=== PATIENT | female | born 2000 | race Caucasian/White ===

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

== ENCOUNTER 2019-02-07 03:14 | Emergency (ER) | payer OTHER ==
[~2019-02-07] VITALS: Ht 157.5 cm; Wt 41.7 kg
[~2019-02-07 03:14] MED LIST changes: +FLUOXETINE HCL20 M1 PO
[2019-02-07] MEDS ORDERED: AUGMENTIN 875-1 EACH PO (03:58)
== END 2019-02-07 04:17 | disposition home or self-care (01) ==
LOC: ED 03:14
DX: K01.1 Impacted teeth (principal); G43.909 Migraine, unspecified, not intractable, without status migrainosus; K21.9 Gastro-esophageal reflux disease without esophagitis; Z91.018 Allergy to other foods; Z91.048 Other nonmedicinal substance allergy status; Z79.899 Other long term (current) drug therapy
CPT/HCPCS: 99283

== ENCOUNTER 2019-04-03 09:03 | Emergency (ER) | payer OTHER ==
[~2019-04-03] VITALS: Ht 157.5 cm; Wt 41.7 kg
[~2019-04-03 09:03] MED LIST changes: +AUGMENTIN 875-1 EACH PO
== END 2019-04-03 10:49 | disposition home or self-care (01) ==
LOC: ED 09:03
DX: G43.909 Migraine, unspecified, not intractable, without status migrainosus (principal); Z88.8 Allergy status to other drugs, medicaments and biological substances; Z91.018 Allergy to other foods; Z79.899 Other long term (current) drug therapy
CPT/HCPCS: 96374; 96375; 99283-25; J0780; J1100; J1200; J1885; J7030

== ENCOUNTER 2019-04-05 00:48 | Emergency (ER) | payer OTHER ==
[~2019-04-05] VITALS: Ht 157.5 cm; Wt 41.7 kg
--- OUTSIDE RECORDS SUMMARY | 2019-04-05 00:50 | XMS ---
PreManage Notification: JULIO CRAIG Security [employer] Specialist Events No recent Security Events currently on file CRITERIA MET - [facility] [place] - 2 Visits in 30 Days CARE PROVIDERS There are no care providers on record at this time. [place] has no Care Guidelines for this patient. Martha VISIT COUNT (12 MO.) 3 [facility] [place]. TOTAL 3 NOTE: Visits indicate total known visits. ED/C VISIT TRACKING (12 MO.) 04/05/2019 00:48 [facility] [place] TYPE: Emergency COMPLAINT: - SOB 04/03/2019 09:04 [facility] [place] TYPE: Emergency COMPLAINT: - VOMITING, HEAD PAIN 02/07/2019 03:14 [facility] [place] TYPE: Emergency COMPLAINT: - MOUTH PAIN DIAGNOSES: - Other adjunct faculty for medical terminology (current) drug therapy - Allergy to other foods - Impacted teeth - Other nonmedicinal substance allergy status - Gastro-esophageal reflux disease without esophagitis - Migraine, unsp, not intractable, without status migrainosus INPATIENT VISIT TRACKING (12 MO.) No inpatient visits to display in this time frame [id number]
== END 2019-04-05 01:59 | disposition home or self-care (01) ==
LOC: ED 00:48
DX: J20.9 Acute bronchitis, unspecified (principal); Z91.018 Allergy to other foods; Z91.048 Other nonmedicinal substance allergy status
CPT/HCPCS: 71046; 80053; 84703; 85025; 99283-25

== ENCOUNTER 2020-07-22 07:00 | Day surgery (SDC) | payer OTHER, BC ==
[~2020-07-22] VITALS: Ht 157.5 cm; Wt 53.0 kg
[~2020-07-22 07:00] MED LIST changes: +HYDROXYZINE HCL25 MG PO; +NAPROSYN500 MG PO; +PROTONIX20 MG PO
--- NOTE | 2020-07-22 10:19 | NUR ---
PT ALERT, ORIENTED AND SOMEWHAT ANXIOUS. HAD GOOD VISIT WITH PT, WAS ABLE TO INFORM AND ENCOURAGE. ALL QUESTIONS ASKED ANSWERED.PT DID REQUEST PRAYER AND ASSISTANCE WITH AN ADMITTING ISSUE. CONNECTED WITH S. REWORK OPERATOR CARLOS AND ADMITTING CARLOS AND THEY BOTH GAVE ASSISTANCE. PT ALSO COMMENTED THAT DR HAYNES WAS THE FIRST DR THAT REALLY LISTENED TO HER, AND ACTED IMMEDIATELY TO HELP HER WITH WHAT HAS BEEN AN ISSUE FOR 8 YRS. WILL FOLLOW NEEEDED
--- NOTE | 2020-07-22 10:28 | NUR ---
07/22/20 1028 Sheila Valle 1021: PT ARRIVES TO PACU VIA STRETCHER FOR RECOVERY. UNABLE TO AROUSE WITH VERBAL OR PAINFUL STIMULI. VSS, RESP EVEN AND UNLABORED. JAW THRUST PERFORMED TO OPEN AIRWAY. OPA IN PLACE. PT ON 12L VIA FACEMASK ON ARRIVAL 123: OXYGEN DECREASED TO 6L VIA FACEMASK. O2 SATS REMAINS >98% JAW THRUST CONTD. REMAINS NONAROUSED WITH VERBAL OR PAINFUL STIMULI. OPA REMAINS IN PLACE
--- NOTE | 2020-07-22 12:50 | NUR ---
1220 AMB TO [facility] SECOND TIME. DOES WELL. WANTS TO GO HOME. HAS CALLED MOM FOR RIDE.
--- NOTE | 2020-07-23 12:07 | OR ---
[facility] [address] [place], [place] [address] Signed DATE OF OPERATION: 07/22/2020 SURGEON: Darion Ruth MD PREOPERATIVE DIAGNOSIS: Pelvic pain. POSTOPERATIVE DIAGNOSES: Pelvic pain and extensive endometriosis of the pelvic peritoneum. Urinary Tract Infection. PROCEDURE: Diagnostic laparoscopy. RN MANAGED CARE: Dr. Guerrero. ANESTHESIA: General. ESTIMATED BLOOD LOSS: 5 mL. SPECIMEN: Urine for urinalysis, possible culture and sensitivity. DRAINS: None. PACKING: None. FINDINGS: Urine was cloudy and some particulate matter present. Cervix was small, slightly friable. Normal-sized uterus. The anterior cul-de-sac was slightly hyperemic but no adhesions. No endometriosis. The posterior cul-de-sac had no adhesions, but there were two larger brownish implants of endometriosis, one in the midline and one on the upper left uterosacral ligament. The rest of the cul-de-sac had multiple white and clear implants of endometriosis extending along both uterosacral ligaments down into the posterior cul-de-sac and up on the lower pelvic sidewall over the ureter. Both Electronically Signed By: DARION RUTH MD 07/23/20 1207 PATIENT NAME: JULIO CRAIG OPERATIVE REPORT DATE OF : [birth year] REPORT #: [id number] PHYSICIAN: DARION RUTH MD PCP: ADDLEMAN,LINDSAY K PAC REPORT IS CONFIDENTIAL AND NOT TO BE RELEASED WITHOUT AUTHORIZATION [facility] [address] [place], [place] [address] Signed posterior aspects of the broad ligament have multiple clear and white endometrial implants present. These extended down to the sigmoid colon, but none was observed on any of the bowel. The left tube was normal in length and normal-appearing fimbriated end. No adhesions. The left ovary is normal in size and shape without any evidence of endometriosis or adhesions. The right tube was normal in length with normal pink fimbriated end, possible clear endometrial implants on the right tube and right infundibulopelvic ligament. The right ovary is normal in size and shape without any evidence of endometriosis or adhesions. No endometriosis was seen in either ovarian fossa. The appendix appeared normal. The liver also appeared normal. The rest of the bowel appeared normal. DESCRIPTION OF PROCEDURE: The patient was brought to the operating room, placed in the supine position. After adequate general anesthesia was obtained, was prepped and draped in usual sterile fashion. Wilburn catheter was placed in the bladder. Urine was noted to be very cloudy and particulate, so specimen was collected for urinalysis with possible culture and sensitivity. A weighted speculum was placed in the vagina and the anterior lip of the cervix was grasped with an Allis clamp. Cervix was serially dilated and a Hulka clamp carefully introduced into the uterine cavity and attached to the anterior lip of the cervix. Allis clamp and weighted speculum were removed. Attention was then drawn to the abdomen. A small infraumbilical skin incision was made with a scalpel after injecting the area with 0.25% Marcaine with epinephrine. The direct entry 5 mm trocar and sleeve with laparoscope inserted was then used in the direct entry procedure. The abdomen was grasped on either side of the incision and elevated and the gas attached to the sleeve and the trocar and sleeve bluntly entered the abdomen under direct visualization. After the sleeve was in the abdomen, the trocar was removed and the 5 mm laparoscope placed through the sleeve. The above findings were noted. The pelvis was carefully inspected. Because of the quite extensive nature of the endometriosis considering the treatment of excision that cause increased risk of adhesions in the cul-de-sac and the increased risk of injury to bowel and ureters, it was decided to discuss other options including medical and robotic surgery with the patient prior to treatment. At this point, the gas was allowed to escape. The trocar removed and the incision closed using a subcuticular stitch of 4-0 Vicryl. The Wilburn catheter was removed. The Hulka clamp removed. The cervix observed and noted to be slightly excoriated from the Hulka clamp and so Bovie was used to carefully cauterize the two raw spots on the cervix. Good hemostasis was then noted. All instruments were removed from the vagina. The patient tolerated the procedure well, went to recovery room in good condition. The sponge, needle, and instrument counts were correct at the end of the procedure. Electronically Signed By: DARION RUTH MD 07/23/20 1207 PATIENT NAME: JULIO CRAIG OPERATIVE REPORT DATE OF : [birth year] REPORT #: [id number] PHYSICIAN: DARION RUTH MD PCP: LINDSAY OTERO PAC REPORT IS CONFIDENTIAL AND NOT TO BE RELEASED WITHOUT AUTHORIZATION [facility] [address] [place] [id number] Signed Darion Ruth MD MJB/MODL /[id number] cc: Dr. Lindsay Otero Copies: ~ Electronically Signed By: DRAION RUTH MD 07/23/20 1207 PATIENT NAME: JULIO CRAIG OPERATIVE REPORT DATE OF : [birth year] REPORT #: [id number] PHYSICIAN: DARION RUTH MD PCP: LINDSAY OTERO PAC REPORT IS CONFIDENTIAL AND NOT TO BE RELEASED WITHOUT AUTHORIZATION
== END 2020-07-22 12:48 | disposition home or self-care (01) ==
LOC: OPS 07:00 → DS 07:00 → OPS 08:45 → DS 11:45 → OPS 12:48
PROVIDERS: ATTEND General Practice
PROC: 0WJJ4ZZ Inspection of Pelvic Cavity, Percutaneous Endoscopic Approach (ICD-10-PCS; principal; 2020-07-22 08:45)
DX: N80.3 Endometriosis of pelvic peritoneum (principal); R10.2 Pelvic and perineal pain; G89.29 Other chronic pain; N39.0 Urinary tract infection, site not specified; J45.20 Mild intermittent asthma, uncomplicated; K21.9 Gastro-esophageal reflux disease without esophagitis; S43.004A Unspecified dislocation of right shoulder joint, initial encounter; M54.10 Radiculopathy, site unspecified; G43.909 Migraine, unspecified, not intractable, without status migrainosus; X58.XXXA Exposure to other specified factors, initial encounter; Z86.69 Personal history of other diseases of the nervous system and sense organs
CPT/HCPCS: 00840; 81001; 87077; 87088; 87186; J0330; J1100; J1885; J2250; J2405; J2704; J2765; J3010; J7121